=== PATIENT | male | born 1990 | race Caucasian/White ===

== ENCOUNTER 2017-01-17 06:36 | Emergency (ER) | payer BC ==
[~2017-01-17] VITALS: Ht 170.2 cm; Wt 77.0 kg
[2017-01-17 07:29] VITALS: BP 125/84
== END 2017-01-17 08:55 | disposition home or self-care (01) ==
LOC: ER 08:04
DX: L02.01 Cutaneous abscess of face (principal)
CPT/HCPCS: 99283